=== PATIENT | male | born 1955 | race Hispanic/Latino ===

== ENCOUNTER → 2018-05-30 | Day surgery (SDC) | payer OTHER ==
[~2018-05-30] VITALS: Ht 165.1 cm; Wt 71.2 kg
[~2018-05-30] MED LIST: KETOROLAC TROME10 M1 PO; NORCO 5-325 TA1 EACH PO; ZOFRAN ODT4 M1 SL
--- NOTE | 2018-05-30 14:54 | Operative Report ---
Operative/Inv Procedure Report Surgery Date: 05/30/18 Name of Procedure: TURP Pre-Operative Diagnosis: benign prostatic hypertrophy Post-Operative Diagnosis: same Estimated Blood Loss: 50ml to 100ml Surgeon/Office Supervisor: Rosemary Casper MD Anesthesia: laryngeal mask airway Drains: 20Fr 3 way Specimens: prostate chips Complications: none Condition: stable Operative Indication: benign prostatic hypertrophy Operative/Procedure Note Note: 62-year-old male with a history of BPH with lower urinary tract symptoms who failed oral therapy and did not want dual therapy. He was given the option of prostate resection and he was given the risks benefits and alternatives of the procedure. He wished to proceed. All questions were answered in the office and in the holding area. Consent was signed. He was taken to the operating room placed on the operating table supine position. Timeout was performed. IV antibiotics were infused. LMA anesthesia was begun. SCDs were placed bilaterally on the lower extremities. He was positioned optimally in the dorsolithotomy position. He was prepped and draped in the standard sterile fashion. Cystoscopy was performed and the bladder was globally inspected. There was no trabeculation and the ureteral orifices were easily identified and far from the bladder neck. The cystoscope was removed and then the resectoscope bipolar with the loop was used to resect the prostate tissue starting from the left lateral lobe at 3 o'clock position down to the 6 o 'clock position. The resection was then carried out from 3:00 to 12:00 on the left side. Point coagulation was performed with bleeders. The same resection was carried out on the patients right lateral lobe. The limits of the bladder neck and the verumontanum were used to prevent bladder neck resection or sphincter resection. Ureteral orifices were periodically located to ensure no injury occurred. Bladder chips were periodically removed with the Danie evacuator. Point coagulation was performed at the end of the case and throughout the case. There was no active bleeding. There was no more prostate chips in the bladder. There was a nice open prostate channel. The resectoscope was removed and a 20 [place] three-way hematuria catheter was placed without difficulty. 15 mL of water was placed into the balloon. The urine output was nice and clear. He was hooked up to continuous bladder irrigation. He was transferred to the recovery room in stable condition. The prostate chips were sent to pathology. Patient tolerated the procedure well. Findings: bilateral obstructing lobes no ureteral injury Discharge Disposition: PACU
== END ==
LOC: STS 02:15
DX: N40.1 Benign prostatic hyperplasia with lower urinary tract symptoms (principal); R35.0 Frequency of micturition; R39.198 Other difficulties with micturition; Z87.891 Personal history of nicotine dependence; I10 Essential (primary) hypertension
CPT/HCPCS: J0131; J0690; J2250